=== PATIENT | female | born 1985 | race Caucasian/White ===

== ENCOUNTER 2017-12-21 20:22 | Emergency (ER) | payer OTHER | END 2017-12-21 22:59 | disposition home or self-care (01) | LOC: M ED 20:22 | DX: J06.9 Acute upper respiratory infection, unspecified (principal); B34.9 Viral infection, unspecified | CPT/HCPCS: 71046 ==

== ENCOUNTER 2019-06-08 19:22 | Emergency (ER) | payer OTHER, SELFPAY ==
[~2019-06-08] VITALS: Ht 162.6 cm; Wt 77.3 kg
[~2019-06-08 19:22] MED LIST: DAYLIQ3 PO; ESCI10TA2; NYQU1LIQ PO; RISP0.5T3
[2019-06-08] MEDS ORDERED: IBUP-1022 PO (21:25)
[2019-06-08] MEDS ORDERED: ROBA500T PO (21:25)
[2019-06-08] MEDS ORDERED: IBUPROFEN 600 MG TAB PO ONE (21:30)
[2019-06-08] MEDS ORDERED: METHOCARBAMOL 500 MG TAB PO ONE (21:30)
[2019-06-08 21:42] VITALS: BP 134/90
== END 2019-06-08 22:04 | disposition home or self-care (01) ==
LOC: M ED 19:22
DX: M54.42 Lumbago with sciatica, left side (principal); S39.012A Strain of muscle, fascia and tendon of lower back, initial encounter; X50.0XXA Overexertion from strenuous movement or load, initial encounter; Y92.89 Other specified places as the place of occurrence of the external cause; Z88.0 Allergy status to penicillin; Z88.1 Allergy status to other antibiotic agents